=== PATIENT | female | born 1985 | race Caucasian/White ===

== ENCOUNTER 2019-10-24 08:00 | Inpatient (IN) ==
[2019-10-24] MEDS ORDERED: Famotidine 20 MG/2 ML VIAL IVP PRN (08:23)
[2019-10-24] MEDS ORDERED: Naloxone 0.4 MG/ML INJ IVP PRN (08:23)
[2019-10-24] MEDS ORDERED: *HR* Nalbuphine 10 MG/ML AMPUL IVP PRN (08:23)
[2019-10-24] MEDS ORDERED: miSOPROStoL 25 MCG TABLET VG PRN (08:23)
[2019-10-24] MEDS ORDERED: Lidocaine 1% 20 ML MDV INFILT PRN (08:23)
[2019-10-24] MEDS ORDERED: Metoclopramide 10 MG/2 ML VIAL IVP PRN (08:23)
[2019-10-24] MEDS ORDERED: Ondansetron 4 MG/2 ML VIAL IVP PRN (08:23)
[2019-10-24] MEDS ORDERED: Oxytocin 20 units/ LR 1000 mL 20 UNIT/1,000 ML BAG IVC SCH ×2 (08:30→17:50)
[2019-10-24] MEDS ORDERED: Penicillin G Potassium 5,000,000 UNIT in 0.9 % Sodium Chloride Mini Bag 100 ML IVPB ONE (09:00)
[2019-10-24 09:07] LABS: Basophils % 0.5 %; Eosinophils % 0.5 %; Hematocrit 33.7 % (35.3-44.9); Hemoglobin 11.9 g/dL (11.5-15.4); Immature Granulocytes % 0.6 % (0-4); Lymphocytes # 1.1 K/mcL (0.6-4.6); Lymphocytes % 17.4 %; Mean Corpuscular HGB Conc 35.3 g/dL (31.6-35.5); Mean Corpuscular Hemoglobin 32.5 pg (28.0-33.3); Mean Corpuscular Volume 92.1 fL (83.0-100.0); Mean Platelet Volume 11.3 fL (9.4-12.4); Monocytes # 0.3 K/mcL (0.0-1.3); Monocytes % 4.8 %; Neutrophils # 4.9 K/mcL (1.6-8.9); Platelet Count 135 K/mcL (140-400); Red Blood Count 3.66 M/mcL (3.82-4.97); Red Cell Distribution Width 12.6 % (11.5-14.5); Segmented Neutrophils % 76.2 %; White Blood Count 6.4 K/mcL (4.3-11.1)
[2019-10-24 09:17] LABS: Amphetamine Screen,Urine Negative ng/mL (Cutoff=1000); Barbiturate Screen,Urine Negative ng/mL (Cutoff=200); Benzodiazepines Screen,Urine Negative ng/mL (Cutoff=200); Cannabinoid Screen,Urine Negative ng/mL (Cutoff = 50); Cocaine Screen,Urine Negative ng/mL (Cutoff= 300); Opiate Screen,Urine Negative ng/mL (Cutoff=300); Phencyclidine Screen,Urine Negative ng/mL (Cutoff=25)
[2019-10-24] MEDS: Ringers Solution, Lactated 1,000 ML IVC SCH ×2 (09:27→13:24)
[2019-10-24] MEDS: Penicillin G Potassium 2,500,000 UNIT in 0.9 % Sodium Chloride 100 ML IVPB SCH ×2 (13:24→18:57)
[2019-10-24 14:53] LABS: Alanine Aminotransferase 8 Units/L (7-52); Aspartate Amino Transferase 13 Units/L (13-39); BUN/Creatinine Ratio 19 (6-26); Blood Urea Nitrogen 9 mg/dL (6-20); Lactate Dehydrogenase 143 Units/L (140-271); Uric Acid 5.7 mg/dL (2.3-7.6); eGFR For African Americans > 60 (> 60); eGFR For Non-African Americans > 60 (> 60)
[2019-10-24] MEDS ORDERED: Acetaminophen 325 MG TABLET PO PRN (17:50)
[2019-10-24] MEDS ORDERED: Benzocaine/Menthol 56 GM AEROSOL SPRAY TP PRN (17:50)
[2019-10-24] MEDS ORDERED: Lanolin 7 G OINT...G. TP PRN (17:50)
[2019-10-24] MEDS ORDERED: Rho Immune Globulin 1,500 UNIT SYRINGE IM PRN (17:50)
[2019-10-24] MEDS: Ibuprofen 600 MG TABLET PO PRN (20:09)
[2019-10-25 07:09] LABS: Basophils % 0.3 %; Eosinophils % 0.5 %; Hematocrit 29.8 % (35.3-44.9); Hemoglobin 10.6 g/dL (11.5-15.4); Immature Granulocytes % 0.6 % (0-4); Lymphocytes # 1.4 K/mcL (0.6-4.6); Lymphocytes % 16.2 %; Mean Corpuscular HGB Conc 35.6 g/dL (31.6-35.5); Mean Corpuscular Hemoglobin 32.8 pg (28.0-33.3); Mean Corpuscular Volume 92.3 fL (83.0-100.0); Mean Platelet Volume 11.4 fL (9.4-12.4); Monocytes # 0.5 K/mcL (0.0-1.3); Monocytes % 5.5 %; Neutrophils # 6.8 K/mcL (1.6-8.9); Platelet Count 132 K/mcL (140-400); Red Blood Count 3.23 M/mcL (3.82-4.97); Red Cell Distribution Width 12.4 % (11.5-14.5); Segmented Neutrophils % 76.9 %; White Blood Count 8.8 K/mcL (4.3-11.1)
[2019-10-25] MEDS: Ibuprofen 600 MG TABLET PO PRN (07:56)
[2019-10-25] MEDS ORDERED: Prenatal Vit/FA 1 EACH TABLET PO SCH (09:00)
[2019-10-26 05:06] VITALS: BP 122/73
== END 2019-10-25 15:40 | disposition home or self-care (01) | DRG 807 ==
LOC: 1NENULAB 08:08 → 1NENUOBS 17:50
PROVIDERS: ADMIT Advanced Practice Midwife; ATTEND Advanced Practice Midwife